=== PATIENT | female | born 1965 | race Caucasian/White ===

== ENCOUNTER 2023-06-08 11:30 | Emergency (ER) | payer OTHER, SELFPAY ==
[2023-06-08 11:31] VITALS: BP 156/117; PULSE 93; RESP 16; TEMP 37.2; O2SAT 99; BMI 22.7
--- NOTE | 2023-06-08 12:01 | CT_ITS ---
INDICATION: Pain EXAMINATION: CT BRAIN - CT Head or Brain W/O Contrast Injection TECHNIQUE: Multiple axial images were obtained of the head without intravenous contrast. A radiation dose optimization technique was used for this scan. IV Contrast dosage and agent: None. RADIATION DOSAGE (If Supplied By Facility): CTDIvol = ( 44.99 ) mGy, DLP = ( 812.98 ) mGycm COMPARISON: No relevant prior comparison study available FINDINGS: BRAIN PARENCHYMA: No intra- or extra-axial hemorrhage. No evidence of acute infarct. No intracranial mass or mass effect. There is preservation of the paige/white matter interface. Posterior fossa structures are unremarkable. CSF SPACES: Appropriate for age. No hydrocephalus. Basal cisterns are patent. CALVARIUM, SKULL BASE, PARANASAL SINUSES AND MASTOID AIR CELLS: Clear. No discrete lytic or blastic abnormalities. ORBITS: Both globes, extraocular muscles, optic nerves and retrobulbar fat appear unremarkable. ASPECTS Score for Acute Strokes: 10 CT/Brain/Head without Contrast IMPRESSION: No acute intracranial process. Electronically Signed: Rex Webb MD at 13:06 EST ,
[2023-06-08] MEDS: SUMAtriptan 6 MG/0.5 ML Vial SC (12:11)
--- NOTE | 2023-06-08 12:14 | EX.ED.VIS.HA ---
HPI History of Present Illness Chief Complaint: Headache Informant: patient Narrative Narrative: Nontraumatic headache starting 4 AM yesterday after awakening. Photophobia and phonophobia. Nausea. She forced herself to throw up yesterday with no relief. Aleve taken yesterday, Tylenol taken at 1 AM. Had transient relief. Awake again this morning with continued symptoms. No history of migraines. History of hypertension on amlodipine. Denies cardiac history. Prior similar symptoms: No PFSH PFSH Medical History (Updated 06/08/23 @ 13:[address] Jose Carlos Gaytan DO) HTN (hypertension) Home Medications sumatriptan succinate 25 mg tablet (Imitrex) 25 mg PO Q2H PRN migraine headache #10 tabs 06/08/23 [Rx Last Taken Unknown] Allergy/AdvReac Type Severity Reaction Status Date / Time Seasonal Allergies: Uncoded Allergy CONGESTION Verified 06/08/23 11:33 Social History Smoking Status: Never smoker ROS ROS ED Constitutional Constitutional ED: Denies chills, fever(s) or sweats Eyes Eyes: Denies change in vision ENT ENT ED: Denies dysphagia or sore throat Cardiovascular Cardiovascular: Denies chest pain, leg edema, palpitations or racing heartbeat Respiratory/Chest Respiratory/Chest: Denies cough, dyspnea or dyspnea on exertion Gastrointestinal Gastrointestinal: Denies abdominal pain, diarrhea, nausea or vomiting Genitourinary Genitourinary ED: Denies dysuria, hematuria or urinary frequency Musculoskeletal Musculoskeletal: Denies back pain, extremity pain or neck pain Integumentary Denies rash or wounds Neurologic Neurologic: Reports headache(s); Denies paresthesias or weakness EXAM Physical Exam Const Vital Signs: 06/08/23 11:31 06/08/23 13:41 Temperature 98.9 F Temperature Source Temporal Pulse Rate 93 89 Respiratory Rate 16 16 Blood Pressure 156/117 H 143/97 H Blood Pressure Mean 130 112 Pulse Ox 99 100 Oxygen Delivery Method Room Air Positive well nourished and well developed General Appearance ED: well developed and NAD HEENT Reports moist mucous membranes normocephalic and atraumatic Eyes PERRL, EOMs intact bilaterally and conjunctivae normal General Eye ED: Yes normal appearance of both eyes Neck no lymphadenopathy, supple and no meningeal signs General: Negative for tenderness Chest Wall Chest: Negative for tenderness Resp normal respiratory effort and normal air movement Effort and Inspection: symmetric chest movement; Negative for respiratory distress Cardio regular rate, regular rhythm and no murmurs Peripheral Pulses: pulses 2+ throughout GI normal to inspection, nondistended, normoactive bowel sounds and non-tender Palpation: Negative for guarding or rebound tenderness present Back/Spine no CVA tenderness and no thoracic nor lumbar tenderness Extremity normal to inspection General Extremety ED: Negative for edema or tenderness General Extremity: Negative for edema Neuro oriented x3, CN's II-XII intact bilaterally and no sensory deficits noted Sensorium / Orientation: awake and alert Skin no rashes or lesions noted and no wounds MDM MDM MDM Narrative Medical decision making narrative: Interventions / MDM: Differential diagnosis: Migraine headache Diagnosis considered but do not suspect: Intracranial mass however CT negative, no clinical meningitis My EKG interpretation: N/A Imaging independently reviewed and interpreted by myself: CT brain: No acute process External documents reviewed: N/A Test considered but not ordered:N/A ED course: Patient presenting with migraine symptoms however new onset. Denies trauma. Patient treated with Imitrex subcu in the ED. CT scan of the brain ordered. CT scan negative she observed with improved symptoms. Short prescription for oral Imitrex written. Blood pressure is elevated in the ED however not significant. She is on amlodipine at home. She will monitor her blood pressure. Outpatient follow-up. All questions were answered. Re-evaluation: stable Disposition discussed with patient/family/significant other: Patient and significant other Case discussed with consulting clinician: N/A This note was generated with [employer] dictation software. It may contain incorrect words, spelling, and punctuation that were not noted in checking the note before signing. Radiography Diagnostic Testing: Clinical Impression(s) from Imaging Studies Brain CT 06/08/23 12:01 IMPRESSION: No acute intracranial process. Electronically Signed: Rex Webb MD at 13:06 EST , Discharge Plan Triage Chief Complaint: Headache ED Provider: Jose Carlos Gaytan Dx/Rx/DC Orders Clinical Impression: Headache, migraine, Elevated blood pressure reading in office with diagnosis of hypertension Instructions: ED Hypertension, Established, ED, Migraine (Classical) Prescriptions: New sumatriptan succinate [Imitrex] 25 mg tablet 25 mg PO Q2H PRN (Reason: migraine headache) Qty: 10 0RF Rx Instructions: do not exceed 8 doses per 24 hrs Stand Alone Forms: ED Work / School Excuse Primary Care Provider: Care Physician,No Primary Referrals: Care Physician,No Primary [Primary Care Provider] - Activity Restrictions/Additional Instructions: CT brain and negative. Blood pressure slightly elevated in the ED. Headache improved with Imitrex. Take medication as prescribed when needed. Follow-up with your doctor. Disposition Disposition: Home, Self Care Discharge Date/Time: 06/08/23 13:42
--- NOTE | 2023-06-08 12:27 | ED.RN ---
rn called into room because patient states chest feels tight after recieving imitrex injection. RN placed patient on monitor- NSR with a rate of 64. Dr. Gaytan notified at this time.
[2023-06-08 13:41] VITALS: BP 143/97; PULSE 89; RESP 16; O2SAT 100
== END 2023-06-08 13:42 | disposition home or self-care (01) ==
PROVIDERS: Emergency Provider Emergency Medicine; Visit Provider Emergency Medicine
DX: G43.909 Migraine, unspecified, not intractable, without status migrainosus (principal); R03.0 Elevated blood-pressure reading, without diagnosis of hypertension
CPT/HCPCS: 70450; 96372; 99282; J3030